=== PATIENT | male | born 1975 | race Caucasian/White ===

== ENCOUNTER 2024-07-20 15:20 | Emergency (ER) | payer OTHER, SELFPAY ==
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
[2024-07-20 15:45] VITALS: BP 149/96; PULSE 93; RESP 18; TEMP 37.1; O2SAT 100
[2024-07-20 17:34] VITALS: BP 141/95; PULSE 83; RESP 18; TEMP 37.2; O2SAT 99
[2024-07-20 18:42] VITALS: RESP 20
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
[2024-07-20] MEDS: KETOROLAC 30 MG/ML VIAL (*BKC) 15 MG IM (19:28)
[2024-07-20] MEDS: methocarbamoL 750 MG TABLET PO (19:29)
[2024-07-20 21:51] VITALS: BP 139/87; PULSE 78; RESP 18; TEMP 36.8; O2SAT 99
== END 2024-07-20 21:50 | disposition home or self-care (01) ==
PROVIDERS: Emergency Provider Student in an Organized Health Care Education/Training Program; PCP Nurse Practitioner Adult Health
DX: S43.101A Unspecified dislocation of right acromioclavicular joint, initial encounter (principal); W22.09XA Striking against other stationary object, initial encounter
CPT/HCPCS: 71046; 71100; 73030; 96372; 99284; A9270; J1885